=== PATIENT | female | born 1965 | race Two or more races ===

== ENCOUNTER 2024-02-07 20:37 | Emergency (ER) | payer MEDICAID, SELFPAY ==
[2024-02-07 20:52] VITALS: BP 132/90; PULSE 77; RESP 18; TEMP 36.9; O2SAT 97
[2024-02-07] MEDS: NAPROXEN 250 MG TABLET 500 MG PO (21:15)
[2024-02-07 21:49] LABS: Collection Type, Urine Catheter
[2024-02-07 22:20] LABS: Bilirubin,Urine Negative (Negative); Blood,Urine 2+ (Negative); Clarity,Urine Turbid (Clear/Hazy); Color,Urine Yellow (Lt Yel-Yel); Glucose, Urine Negative (Negative); Ketones,Urine Negative (Negative); Leukocyte Esterase,Urine Positive (Negative); Nitrite,Urine Positive (Negative); PH,Urine 6.5 (5.0-7.0); Protein,Urine 2+ (Neg - Trace); RBC,Urine 1317 /hpf (0-3); Specific Gravity,Urine 1.017 (1.001-1.035); Squamous Epithelial Cell,Urine 1 /hpf (0-5); Urobilinogen,Urine Negative mg/dL (0.0-1.0); WBC,Urine 788 /hpf (0-5)
[2024-02-07 22:21] LABS: Amphetamine/Methamp Scrn,U Negative (Negative); Barbiturate Screen,Urine Negative (Negative); Benzodiazepines Screen,Urine Negative (Negative); Benzoylecgonine Screen, Ur Negative (Negative); Culture Indicated,Urine Yes; Fentanyl Screen,Urine Negative (Negative); Opiate Screen,Urine Negative (Negative); THC Screen,Urine Negative (Negative)
--- NOTE | 2024-02-07 22:26 | XR_ITS ---
Examination: CT abdomen and pelvis without contrast. Coronal 3-D reconstructions. Sagittal 2-D reconstructions. Date and time of exam:February 07, 2024 10:56 PM Indications: Urinary frequency and blood in urine today CTDI: vol (mGy): 9.51 DLP: (mGycm): 495 Technique: Axial images of the abdomen have been obtained, 3 mm slice thickness Intravenous contrast material has not been administered. Low dose protocols were performed. One or more of the following dose reduction techniques were used; automated exposure control, adjustment of the mA and/or KV according to patient size, use of iterative reconstruction technique. Findings: 19 mm nodule with calcifications left lower lobe No focal liver or splenic lesion Absent gallbladder No pancreatic or adrenal mass 3.6 cm probable left renal cyst No renal or ureteral calculi, no hydronephrosis Aorta normal size Normal appendix No bowel obstruction No bladder mass or bladder calculi No pelvic mass Impression: No renal or ureteral calculi, no hydronephrosis No bladder mass or bladder calculi Normal appendix Recommend renal sonography to confirm 3.6 cm left renal cyst
--- NOTE | 2024-02-07 23:15 | PD.EDFMALE ---
ED Female Urogenital RME/HPI General Chief complaint: Urogenital-Female Stated complaint: FREQUENCY URANATION AND PAIN WITH BLOOD Time Seen by Provider: 02/07/24 21:00 Arrival date/time: 02/07/24 20:37 58F with no significant PMH presents to ED with 1 day of dysuria/hematuria. Patient denies flank pain and fevers/chills. Limitations: no limitations Related Data Previous Rx's ?Medication ?Instructions ?Recorded Phenazopyridine * (PYRIDIUM *) 200 mg PO TID 4 days ##0 12/20/12 cefuroxime axetil 500 mg tablet 500 mg PO BID 7 days #14 tabs 02/08/24 Allergies Allergy/AdvReac Type Severity Reaction Status Date / Time codeine Allergy Verified 02/07/24 20:40 Review of Systems Review of Systems Systems Reviewed: All systems reviewed, normal except as documented Constitutional Constitutional: Reports system reviewed and no additional complaints, except as documented, Denies fever(s) and Denies headache(s) ENT Ears, Nose, Mouth, and Throat: Denies disequilibrium and Denies headache(s) Cardiovascular Cardiovascular: Reports system reviewed and no additional complaints, except as documented, Denies chest pain and Denies dyspnea Respiratory Respiratory: Reports system reviewed and no additional complaints, except as documented, Denies cough and Denies dyspnea Gastrointestinal Gastrointestinal: Reports system reviewed and no additional complaints, except as documented, Denies abdominal pain, Denies nausea and Denies vomiting Genitourinary Genitourinary: Reports as per HPI, Reports dysuria and Reports hematuria Neurologic Neurologic: Reports system reviewed and no additional complaints, except as documented, Denies confusion, Denies disequilibrium and Denies headache(s) Psychiatric Psychiatric: Denies confusion Past Medical History Social History SMOKING STATUS: Never smoker ED Exam General Limitations: Present no limitations General appearance: Present alert and in no apparent distress Head Head exam: Present atraumatic Eye Eye exam: Present normal appearance, PERRL and EOMI ENT ENT exam: Present normal exam, normal oropharynx and mucous membranes moist Neck Neck exam: Present normal inspection, full ROM and trachea midline Chest Chest inspection: Present normal inspection and symmetric chest wall rise Respiratory Respiratory exam: Present normal lung sounds bilaterally Cardiovascular Cardiovascular exam: Present regular rate, normal rhythm and normal heart sounds Abdominal Exam Abdominal exam: Present soft and normal bowel sounds Extremities Exam Extremities exam: Present normal inspection and full ROM Back Exam Back exam: Present normal inspection and full ROM Neurological Exam Neurological exam: Present alert, oriented X3 and CN II-XII intact Psychiatric Psychiatric exam: Present normal affect and normal mood Skin Skin exam: Present warm, dry, intact and normal color Course Quality Measures none Orders Category Date Time Status CT abdomen pelvis wo con Stat Exams 02/07/24 22:26 Completed Drug Screen,Urine Stat Lab 02/07/24 21:20 Completed Urinalysis, C/S if Indicated Stat Lab 02/07/24 21:20 Completed Urine Culture Stat Lab 02/07/24 21:20 Received Naproxen [Naprosyn] Med 02/07/24 21:01 Discontinued 500 mg PO X1 ONE cefTRIAXone [Rocephin] 1,000 mg Med 02/08/24 01:17 Discontinued Lidocaine 1% 20 ml [Xylocaine 1% 20 ML] 2.1 ml IM X1 Vital Signs Vital signs: Vital Signs Temperature 98.5 F 02/07/24 20:52 Pulse Rate 77 02/07/24 20:52 Respiratory Rate 18 02/07/24 20:52 Blood Pressure 132/90 H 02/07/24 20:52 Pulse Oximetry (%) 97 02/07/24 20:52 Oxygen Delivery Method Room Air 02/07/24 20:52 O2 at 97% on RA and WNLs Urogenital - Female MDM Narrative MDM Narrative:: 58F with no significant PMH presents to ED with 1 day of dysuria/hematuria. Patient denies flank pain and fevers/chills. Physical exam reveals no flank tenderness. Patient is afebrile, calm, and alert. UA suggests UTI. CT no kidney stone. Patient data External records reviewed:: [facility] previous records Clinical information provided by:: patient Social determinants that could affect healthcare access:: none Patient has the following chronic illnesses:: none How is presenting disease/condition affected by chronic disease/condition?: no chronic disease Evaluation data The following diagnostics were reviewed and interpreted by me:: lab results and radiology exam(s) Lab and/or radiology exams considered but not ordered:: ordered Interpretation Summary: above Medications / Prescriptions Medications or Prescriptions considered but not ordered:: ordered Medication administrations:: Medication Administration History Discontinued Medications Ceftriaxone Sodium 1,000 mg/ (Lidocaine HCl 2.1 ml) 0 mg IM X1 ONE Stop: 02/08/24 01:18 Last Admin: 02/08/24 01:37 Dose: 1,000 mg Documented By: MALCOLM Naproxen (Naproxen 250 Mg Tablet) 500 mg PO X1 ONE Stop: 02/07/24 21:02 Last Admin: 02/07/24 21:15 Dose: 500 mg Documented By: MALCOLM above Consultations Consultation(s) initiated? (list below): No Diagnosis Urogenital Female Differential Diagnosis: urinary tract infection, bacterial vaginosis, trichomoniasis, cervicitis, ovarian cyst, vaginitis, ruptured ovarian cyst, cyst of Bartholin's gland, cystitis, dysmenorrhea and other (kidney stone) Most likely diagnosis given after review of the tests above:: UTI Admission Indicated Admission indicated?: not indicated Admission Request Was there a request for admission?: No Disposition Plan Disposition Plan: Discharge Discharge Attestation Discharge Attestation: The patient and all family members were given an opportunity to ask questions and understood the discharge instructions. Discharge instructions specifically effects, indications for sooner follow up or return to the emergency department, and the expected course of current diagnosis. Patient condition: Stable Discharge Plan Plan Patient Disposition: HOME (Self Care) Disposition Comment: Stable Prescriptions/Referrals Prescriptions/Med Rec: New cefuroxime axetil 500 mg tablet 500 mg PO BID 7 Days Qty: 14 0RF No Action Phenazopyridine * (PYRIDIUM *) 200 MG tablet 200 mg PO TID 4 Days Qty: 0 0RF Referrals: Shi Serna NP [Primary Care Provider] - In 1 week Problem List Clinical Impression: Urinary tract infection Patient/Caregiver Discharge Instructions Education Materials: ED CYSTITIS Female Adult Additional Instructions: Please follow-up with PCP within 24-48 hours and return immediately if symptoms worsen. Print Language: Citizen Of [place] Stand Alone Forms: Patient Portal Info Letter RAFFY/RENAE Supervising Physician DEVANTE Supervising Physician: Dr. Zavala
[2024-02-08] MEDS: cefTRIAXone 1,000 MG, LIDOCAINE 1% 20 ML 2.1 ML IM (01:37)
[2024-02-08 01:42] VITALS: RESP 18
== END 2024-02-08 01:42 | disposition home or self-care (01) ==
PROVIDERS: Physician Assistant; Emergency Provider Emergency Medicine; PCP Nurse Practitioner Family
DX: N39.0 Urinary tract infection, site not specified (principal)
CPT/HCPCS: 74176; 80307; 81001; 87077; 87086; 87186; 96372; 99284; J0696; J3490; A9270

== ENCOUNTER → 2024-04-09 | Outpatient (CLI) | payer MEDICAID, SELFPAY ==
--- NOTE | 2024-04-09 14:45 | XR_ITS ---
Examination: Screening digital mammography, bilateral Computer aided detection 3-D breast Tomosynthesis, bilateral Date and time of exam: 04/09/2024, 2:20 PM Comparisons: June 2020 through March 2023 Indications: Screening Technique: Nonmagnified MLO, CC views of the breasts to been obtained, reconstructed from 3-D Tomosynthesis images. R2 computer aided detection program utilized for evaluation of suspicious masses and/or abnormal calcifications. 3-D Tomosynthesis images obtained. Technologist: Findings: The breasts are heterogeneously dense, which may obscure small masses. No evidence of abnormal masses or suspicious calcifications. Impression: BI-RADS category 1: Negative findings (within normal) Recommend 1 year follow-up mammogram
== END | disposition home or self-care (01) ==
PROVIDERS: PCP Nurse Practitioner Family; Referring Provider Nurse Practitioner Family; Visit Provider Nurse Practitioner Family
DX: Z12.31 Encounter for screening mammogram for malignant neoplasm of breast (principal); R92.313 Mammographic fatty tissue density, bilateral breasts
CPT/HCPCS: 77063; 77067

== ENCOUNTER 2024-05-01 18:05 | Emergency (ER) | payer MEDICAID, SELFPAY ==
[2024-05-01 18:15] VITALS: BP 130/91; PULSE 94; RESP 18; TEMP 37.4; O2SAT 97; BMI 30.8
--- NOTE | 2024-05-01 18:49 | EKG_ITS ---
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
--- NOTE | 2024-05-01 19:07 | XR_ITS ---
Examination: PA chest single view TECHNIQUE: Upright PA chest single view Examination date and time: May 01, 2024, 1912 hours Comparison May 03, 2011 INDICATIONS: Fever coughing beginning 3 days ago. FINDINGS: Normal heart size Mild accentuation of basilar bronchovascular markings. No lobar pneumonia Moderate osteopenia IMPRESSION: Basilar bronchitis pattern
[2024-05-01 19:36] LABS: Basophils % (Auto) 0 % (0-2.5); Eosinophils % (Auto) 0 % (0-10); Hematocrit 43.9 % (36.0-46.0); Hemoglobin 14.9 g/dL (12.0-16.0); Immature Granulocytes % (Auto) 0 % (0-0); Lymphocytes # (Auto) 1.1 Thou/mm3 (1.0-4.8); Lymphocytes % (Auto) 31 % (10-50); Mean Corpuscular HGB Conc 33.9 g/dl (31.0-37.0); Mean Corpuscular Hemoglobin 29.6 pg (25.0-35.0); Mean Corpuscular Volume 87 fL (80-100); Monocytes # (Auto) 0.6 Thou/mm3 (0.0-0.8); Monocytes % (Auto) 16 % (0-12); Neutrophils # (Auto) 1.9 Thou/mm3 (1.8-7.7); Neutrophils % (Auto) 53 % (37-80); Nucleated Red Blood Cell % 0 /100 WBC (0); Platelet Count 211 Thou/mm3 (140-440); RDW Standard Deviation 38.2 fL (36.4-46.3); Red Blood Count 5.03 Miln/mm3 (4.00-5.20); White Blood Count 3.6 Thou/mm3 (3.6-11.0)
[2024-05-01] MEDS: ONDANSETRON ODT 4 MG TABRAP PO (19:43)
[2024-05-01 19:54] LABS: Alanine Aminotransferase 49 U/L (10-49); Albumin, Serum 5.1 gm/dL (3.5-5.0); Albumin/Globulin Ratio 1.5 (1.2-2.2); Alkaline Phosphatase 90 U/L (46-116); Anion Gap 12 (7-16); Aspartate Amino Transferase 49 U/L (0-34); BUN/Creatinine Ratio 24 Ratio (12-20); Bilirubin,Total 0.4 mg/dL (0.3-1.2); Blood Urea Nitrogen 22 mg/dL (9-23); Calcium 10.5 mg/dL (8.3-10.6); Calcium (Corrected) 10.5 mg/dL (8.5-10.1); Carbon Dioxide 25.5 mMol/L (20.0-31.0); Chloride 105 mMol/L (98-107); Creatinine (Component) 0.9 mg/dL (0.6-1.3); Estimated Creatinine Clearance 68.6 mL/min (>60); Globulin 3.3 gm/dL (2.3-3.5); Glucose 131 mg/dL (74-106); Lipase 39 U/L (12-53); Osmolality,Calculated 288 (275-295); Potassium 4.4 mMol/L (3.4-5.1); Sodium 142 mMol/L (136-145); Total Protein 8.4 gm/dL (5.7-8.2); Troponin I < 0.002 ng/mL (0.0-0.045); eGFR > 60 See Note
[2024-05-01] MEDS: DiphenhydrAMINE 25 MG CAPSULE PO (20:18)
--- NOTE | 2024-05-01 21:00 | EDNOTE_ITS ---
Upper Respiratory Inf. RME/HPI General Chief Complaint: Flu Like Symptoms Stated Complaint: BODY ACHES, FEVER, COUGH X SUNDAY W/ VOMITING Time Seen by Provider: 05/01/24 18:34 Arrival date/time: 05/01/24 18:05 58F with history of DM presents to ED with 2 days of cough, fevers/chills, and body aches. Family members have similar symptoms. Patient denies CP and SOB. Patient has been taking Tamiflu from clinic but had some N/V. She is unclear if the N/V started before or after of Tamiflu. Patient denies ab pain. Limitations: no limitations Related Data Previous Rx's ?Medication ?Instructions ?Recorded Phenazopyridine * (PYRIDIUM *) 200 mg PO TID 4 days ## 0 12/20/12 Allergies Allergy/AdvReac Type Severity Reaction Status Date / Time codeine Allergy Verified 05/01/24 18:07 Review of Systems Review of Systems Systems Reviewed: All systems reviewed, normal except as documented Constitutional Constitutional: Reports system reviewed and no additional complaints, except as documented, Reports as per HPI, Reports body ache(s), Reports chills, Reports fever(s) and Denies headache(s) ENT Ears, Nose, Mouth, and Throat: Denies disequilibrium and Denies headache(s) Cardiovascular Cardiovascular: Reports system reviewed and no additional complaints, except as documented, Denies chest pain and Denies dyspnea Respiratory Respiratory: Reports system reviewed and no additional complaints, except as documented, Reports as per HPI, Reports cough and Denies dyspnea Gastrointestinal Gastrointestinal: Reports system reviewed and no additional complaints, except as documented, Reports as per HPI, Denies abdominal pain, Reports nausea and Reports vomiting Neurologic Neurologic: Reports system reviewed and no additional complaints, except as documented, Denies confusion, Denies disequilibrium and Denies headache(s) Psychiatric Psychiatric: Denies confusion Past Medical History Social History SMOKING STATUS: Never smoker ED Exam General Limitations: Present no limitations General appearance: Present alert and in no apparent distress Head Head exam: Present atraumatic Eye Eye exam: Present normal appearance, PERRL and EOMI ENT ENT exam: Present normal exam, normal oropharynx and mucous membranes moist Neck Neck exam: Present normal inspection, full ROM and trachea midline Chest Chest inspection: Present normal inspection and symmetric chest wall rise Respiratory Respiratory exam: Present normal lung sounds bilaterally Cardiovascular Cardiovascular exam: Present regular rate, normal rhythm and normal heart sounds Abdominal Exam Abdominal exam: Present soft and normal bowel sounds Extremities Exam Extremities exam: Present normal inspection and full ROM Back Exam Back exam: Present normal inspection and full ROM Neurological Exam Neurological exam: Present alert, oriented X3 and CN II-XII intact Psychiatric Psychiatric exam: Present normal affect and normal mood Skin Skin exam: Present warm, dry, intact and normal color Course Quality Measures none Orders Category Date Time Status Bedside Influenza A&B Antigen Test NOW Care 05/01/24 18:18 Completed EKG (ED ONLY) *Do not use* NOW Care 05/01/24 18:49 Completed EKG (ED Only) Stat Exams 05/01/24 18:49 Draft XR chest 1V portable Stat Exams 05/01/24 19:07 Completed CBC Stat Lab 05/01/24 19:20 Completed CMP [Comprehensive Metabolic Panel] Stat Lab 05/01/24 19:20 Completed Lipase Stat Lab 05/01/24 19:20 Completed Troponin I Stat Lab 05/01/24 19:20 Completed DiphenhydrAMINE [Benadryl] Med 05/01/24 20:09 Discontinued 25 mg PO X1 ONE Ondansetron Odt [Zofran Odt] Med 05/01/24 18:49 Discontinued 4 mg PO X1 ONE Vital Signs Vital signs: Vital Signs Temperature 99.4 F 05/01/24 18:15 Pulse Rate 94 05/01/24 18:15 Respiratory Rate 18 05/01/24 18:15 Blood Pressure 130/91 H 05/01/24 18:15 Pulse Oximetry (%) 97 05/01/24 18:15 Oxygen Delivery Method Room Air 05/01/24 18:15 O2 at 97% on RA and WNLs Upper Respiratory Infection MDM Narrative MDM Narrative:: 58F with history of DM presents to ED with 2 days of cough, fevers/chills, and body aches. Family members have similar symptoms. Patient denies CP and SOB. Patient has been taking Tamiflu from clinic but had some N/V. She is unclear if the N/V started before or after of Tamiflu. Patient denies ab pain. Physical exam reveals nasal congestion, but clear lungs. Normal WOB. RRR. Patient is afebrile, calm, and alert. EKG is NSR. CXR bronchitis. Flu A+. No leukocytosis. Procal normal. Trop normal. N/V likely from Tamiflu. PO challenge passed. Patient data External records reviewed:: [facility] previous records Clinical information provided by:: patient Social determinants that could affect healthcare access:: none Patient has the following chronic illnesses:: DM How is presenting disease/condition affected by chronic disease/condition?: exacerbated by Evaluation data The following diagnostics were reviewed and interpreted by me:: lab results, radiology exam(s) and EKG tracing(s) Lab and/or radiology exams considered but not ordered:: ordered Interpretation Summary: above Medications / Prescriptions Medications or Prescriptions considered but not ordered:: ordered Medication administrations:: Medication Administration History Discontinued Medications Diphenhydramine HCl (Diphenhydramine 25 Mg Capsule) 25 mg PO X1 ONE Stop: 05/01/24 20:10 Last Admin: 05/01/24 20:18 Dose: 25 mg Documented By: FRANCISCA Ondansetron HCl (Ondansetron Odt 4 Mg Tabrap) 4 mg PO X1 ONE; Protocol Stop: 05/01/24 18:50 Last Admin: 05/01/24 19:43 Dose: 4 mg Documented By: FRANCISCA above Consultations Consultation(s) initiated? (list below): No Diagnosis Upper Respiratory Differential Diagnosis: upper respiratory infection, croup, otitis media, sinusitis, viral infection, bronchitis, influenza, pharyngitis and other (ACS) Most likely diagnosis given after review of the tests above:: flu A Admission Indicated Admission indicated?: not indicated Admission Request Was there a request for admission?: No Disposition Plan Disposition Plan: Discharge Discharge Attestation Discharge Attestation: The patient and all family members were given an opportunity to ask questions and understood the discharge instructions. Discharge instructions specifically effects, indications for sooner follow up or return to the emergency department, and the expected course of current diagnosis. Patient condition: Stable Discharge Plan Plan Patient Disposition: HOME (Self Care) Disposition Comment: Stable Prescriptions/Referrals Prescriptions/Med Rec: No Action Phenazopyridine * (PYRIDIUM *) 200 MG tablet 200 mg PO TID 4 Days Qty: 0 0RF Referrals: Shi Serna [employer] [Primary Care Provider] - In 1 week Problem List Clinical Impression: Influenza A Patient/Caregiver Discharge Instructions Education Materials: ED Influenza (Adult) Additional Instructions: Please follow-up with PCP within 24-48 hours and return immediately if symptoms worsen. Ibuprofen/Tylenol can be used simultaneously for greater fever/pain control. Benadryl is good for cough, congestion, and sleep. Print Language: [place] Stand Alone Forms: Patient Portal Info Letter PA/PROPERTY SUPERVISOR Supervising Physician PA/PROPERTY SUPERVISOR Supervising Physician: Dr. Zavala
== END 2024-05-01 20:31 | disposition home or self-care (01) ==
PROVIDERS: Physician Assistant; Emergency Provider Emergency Medicine; PCP Nurse Practitioner Family
DX: J10.1 Influenza due to other identified influenza virus with other respiratory manifestations (principal); R94.31 Abnormal electrocardiogram [ECG] [EKG]
CPT/HCPCS: 36415; 71045; 80053; 83690; 84484; 85025; 87400; 93005; 99283; Q0162; A9270

== ENCOUNTER → 2025-02-10 | Outpatient (CLI) | payer MEDICAID, SELFPAY ==
--- NOTE | 2025-02-10 | XR_ITS ---
Study: Left shoulder radiography. INDICATION: Left shoulder pain for 1 year without known trauma. TECHNIQUE: Internal and external rotation radiographs with scapular Y radiograph at 0819 hours 10 February 2025. FINDINGS: There is diminished bone mineral density. No glenohumeral fracture or dislocation is observed. Spurring is noted at the inferior margin of the scapular glenoid. The acromion is spurred reflecting a possible prior injury. The acromioclavicular is normal at 3.4 mm. Subjacent ribs are unremarkable. IMPRESSION: 1. No acute diagnostic abnormality. 2. Spurs at the inferior glenoid margin and acromion.
== END | disposition home or self-care (01) ==
PROVIDERS: PCP Physician Assistant; Referring Provider Physician Assistant; Visit Provider Physician Assistant
DX: M25.512 Pain in left shoulder (principal)
CPT/HCPCS: 73030